=== PATIENT | male | born 1940 | race Caucasian/White ===

== ENCOUNTER 2018-04-19 05:51 | Inpatient (IN) | payer OTHER ==
[2018-04-13 11:39] LABS: Urine Appearance CLEAR; Urine Bilirubin NEGATIVE (NEG); Urine Blood NEGATIVE (NEG); Urine Color YELLOW; Urine Glucose NEGATIVE (NEG); Urine Protein NEGATIVE (NEG); Urine Urobilinogen 0.2 mg/dL (0.2-1.0); Urine pH 5.5 (5.0-7.0)
[2018-04-13 11:43] LABS: Urine Microscopic Reflex NO UMIC
[2018-04-13 11:54] LABS: Albumin 3.9 g/dL (3.4-5.0); Bilirubin Total 0.6 mg/dL (0.2-1.0); Protein, Total 7.8 g/dL (6.4-8.2)
[2018-04-13 13:02] LABS: Absolute Monocytes 0.6 K/uL (0.1-1.3); Absolute Neutrophil 6.4 K/uL (1.8-8.0); Basophils % 0.6 % (0-1.3); Eosinophils % 2.5 % (0-4.4); Hematocrit 43.1 % (39.6-49.0); Lymphocytes % 12.2 % (15.3-44.8); MPV 8.9 fL (7.6-11.3); Monocytes % 7.1 % (3.3-12.3); RBC Red Blood Cell Count 4.89 M/uL (4.33-5.43)
--- OUTSIDE RECORDS SUMMARY | 2018-04-19 06:03 | XMS REPORT ---
:1940 Author Organization [facility] Address [address] [place] [address] Dr. Mares [address] [place] [id number] Care Team Providers Name Role Phone Unavailable Unavailable Unavailable Problems This patient has no known problems. Allergies, Adverse Reactions, Alerts This patient has no known allergies or adverse reactions. Medications This patient has no known medications.
--- OUTSIDE RECORDS SUMMARY | 2018-04-19 06:03 | XMS REPORT ---
:1940 Author Organization [employer] Care Team Providers Name Role Phone Michael Carrillo Provider Role Unavailable Allergies, Adverse Reactions, Alerts Substance Reaction Event Type N.K.D.A. Info Not Available Non Drug Allergy Problems Problem Type Condition Code Onset Dates Condition Status Assessment Primary osteoarthritis of left knee M17.12 Active Assessment Pain, joint, knee, right M25.561 Active Assessment Primary osteoarthritis of right M17.11 Active knee Problem Primary osteoarthritis of knees, M17.0 Active bilateral Problem Pain in joint of left knee M25.562 Active Problem Primary osteoarthritis of right M17.11 Active knee Assessment Pain in joint of left knee M25.562 Active Problem Pain, joint, knee, right M25.561 Active Problem Primary osteoarthritis of left knee M17.12 Active Medications Medication Code Code Instructions Start End Status Dosage System Date Date Gabapentin ND 31225491321 300 MG Orally Active 1 capsule Once a day Oxybutynin [facility] 95499213174 5 MG Orally Active 1 tablet Chloride Twice a day Warfarin Sodium [facility] 70247146487 7.5 MG Orally Active 1 tablet Once a day Potassium ND 51957619337 Oral Active 1 tab Enalapril ND 38314471337 10 MG Orally Active 1 tablet Maleate Once a day Simvastatin ND 48301865096 40 MG Orally Active 1 tablet in Once a day the evening Doxazosin ND 69440384660 1 MG Orally Active 1 tablet Mesylate Once a day Furosemide ND 90436545969 Oral Active 1 tab Digoxin [facility] 54542853636 0.25 MG/ML Active as directed Injection Results No Known Results Summary Purpose eClinicalWorks Submission
[2018-04-19] MEDS ORDERED: Ringers Lactate 1,000 ML IV ONE ×2 (06:27→12:12)
[2018-04-19] MEDS ORDERED: CEFAZOLIN 1GM (PREMIX IV) 1 GM/50 ML BAG ONE (06:28)
[2018-04-19] MEDS ORDERED: LIDOCAINE 1% MPF 5 ML VIAL ONE (06:28)
[2018-04-19] MEDS ORDERED: TRANEXAMIC ACID 1,000 MG in NA CHLORIDE 0.9% 50 ML IV SCH (08:00)
[2018-04-19] MEDS ORDERED: MIDAZOLAM HCL 2 MG/2 ML INJ ONE ×2 (08:10→08:44)
[2018-04-19] MEDS ORDERED: FENTANYL CITR 250 MCG/5 ML ONE (08:11)
[2018-04-19] MEDS ORDERED: NA CHLORIDE 0.9% 250 ML ONE (08:12)
[2018-04-19] MEDS ORDERED: BUPIVACA 0.25%/EPI 0.0005% MDV 50 ML VIAL ONE (08:12)
[2018-04-19] MEDS ORDERED: ROPLVACAINE HCL 20 ML ONE ×2 (08:17→08:35)
[2018-04-19] MEDS ORDERED: GLYCOPYRROLATE 0.2 MG/ML SYR ONE (08:44)
[2018-04-19] MEDS ORDERED: ROCURONIUM 50 MG/5 ML VIAL IV ONE (08:44)
[2018-04-19] MEDS ORDERED: PROPOFOL 200 MG/20 ML VIAL IV ONE (09:09)
[2018-04-19] MEDS ORDERED: LIDOCAINE 2% MPF 5 ML VIAL ONE (09:09)
[2018-04-19] MEDS ORDERED: EPHEDRINE SULF 50 MG/ML VIAL ONE (09:10)
[2018-04-19] MEDS ORDERED: NEOSTIGMINE 1 MG/ML -10 ML VIAL ONE (10:51)
[2018-04-19] MEDS ORDERED: FENTANYL CITR 100 MCG/2 ML ONE (12:37)
[2018-04-19] MEDS ORDERED: DEXAMETHASONE 10 MG/ML VIAL ONE (12:38)
[2018-04-19] MEDS ORDERED: ONDANSETRON 4 MG/2 ML VIAL IV PRN (13:21)
[2018-04-19] MEDS ORDERED: MORPHINE 4 MG/ML SYR IV PRN (13:21)
[2018-04-19] MEDS: HYDROMORPHONE HCL 2 MG/ML inj ONE ×3 (14:04→14:30)
[2018-04-19 14:17] LABS: Hematocrit 37.8 % (39.6-49.0)
--- NOTE | 2018-04-19 14:40 | RAD REPORT ---
EXAM DESCRIPTION: RAD - Knee Left 2 View - 04/19/2018 2:20 pm CLINICAL HISTORY: Left total knee prosthesis placement COMPARISON: None. FINDINGS: Portable AP and cross-table lateral views were obtained. Left total knee prosthesis has be en placed. No suspicious bone or implant finding. Postsurgical changes are present as expected.
[2018-04-19] MEDS: CEFAZOLIN 1GM (PREMIX IV) 1 GM/50 ML BAG IV SCH (16:11)
[2018-04-19] MEDS: DIGOXIN 0.25 MG TABLET PO SCH (16:39)
[2018-04-19] MEDS: FUROSEMIDE 20 MG TABLET PO SCH (16:39)
[2018-04-19] MEDS: ENALAPRIL 10 MG TAB PO SCH (16:40)
[2018-04-19] MEDS ORDERED: CEFAZOLIN/NS 1gm 1 GM/50 ML BAG IVPB SCH (17:00)
--- NOTE | 2018-04-19 17:09 | EKG ---
Test Date: 2018-04-19 Test Time: 07:26:09 Clinical Research Associate: REINALDO MEASUREMENT RESULTS: Intervals: Rate: 84 [place]: QRSD: 106 QT: 378 QTc: 446 [place]: P: [place]: QRS: 54 T: 71 INTERPRETIVE STATEMENTS: Atrial fibrillation ST abnormality, possible digitalis effect Abnormal ECG No previous ECG available for comparison Electronically Signed On 04-19-18 17:06:57 [employer] SUPERVISOR by Rick Al
[2018-04-19] MEDS: HYDROCODONE/APAP 7.5/325 MG TAB PO PRN ×2 (17:51→21:38)
--- NOTE | 2018-04-19 17:58 | P.CNS ---
Date of Consult: 04/19/18 Reason for Consult: Medical management Requesting Physician: Michael Carrillo Primary Care Provider: Dr. Storey Chief Complaint: Left knee osteoarthritis, status post total knee History of Present Illness: This is a 78-year-old male with history of CHF, hypertension, atrial fibrillation on Coumadin, and history of mitral/tricuspid replacement admitted for left knee osteoarthritis now status post TKA, left lower extremity. I was consulted for medical management on this patient. At the time of my exam, patient was hemodynamically stable, alert oriented x3, satting 94-95% on 4 L via nasal cannula. He denied any other complaints, including chest pain, shortness of breath, headache, dizziness, vision changes, abdominal pain, complaints. He also reported well controlled pain at this time. No other concerns or complaints at this time Allergies No Known Allergies Allergy (Verified 04/13/18 10:06) Home medications list reviewed: Yes Home Medications: Digoxin [Lanoxin] 0.25 mg PO DAILY AFTER SUPPER 04/13/18 Doxazosin [Cardura] 2 mg PO BEDTIME 04/13/18 Enalapril [Vasotec] 10 mg PO DAILY AFTER SUPPER 04/13/18 Enoxaparin Sodium [Lovenox 60 MG INJ] 60 mg SQ DAILY 04/13/18 Furosemide [Lasix] 20 mg PO BID 04/13/18 Gabapentin 300 mg PO [id number] 04/13/18 Gabapentin 600 mg PO BEDTIME 04/13/18 Hydrocodone Bit/Acetaminophen [Hydrocodon-Acetaminophn 10-325] 1 each PO Q6HP PRN 04/13/18 Levothyroxine Sodium 137 mcg PO DAILY 04/13/18 Oxybutynin Chloride [Ditropan] 5 mg PO BID 04/13/18 Potassium Chloride [Klor-Con] 20 meq PO DAILY 04/13/18 Simvastatin 40 mg PO BEDTIME 04/13/18 Warfarin Sodium [Coumadin] 7.5 mg PO DAILY 5 PM 04/13/18 - Past Medical/Surgical History Diabetic: No -: CHF -: A-FIB -: HTN -: Hyperthyroidism -: lumbar surg. 2001 -: 2 artificial heart valves 2014 - Family History Mother Medical History: Stroke Notes: father prostate ca - Social History Alcohol use: Yes CD- Drugs: No Caffeine use: Yes Place of Residence: Home Review of Systems 10-point ROS is otherwise unremarkable Physical Examination Temp Pulse Resp BP Pulse Ox 97.5 F 104 H 18 135/84 94 04/19/18 16:00 04/19/18 16:40 04/19/18 16:00 04/19/18 16:40 04/19/18 16:00 General: Alert, In no apparent distress, Oriented x3 HEENT: Atraumatic, PERRLA, Mucous membr. moist/pink, EOMI, Sclerae nonicteric Neck: Supple, 2+ carotid pulse no bruit, No LAD, Without JVD or thyroid abnormality Respiratory: Clear to auscultation bilaterally, Normal air movement Cardiovascular: Regular rate/rhythm, Normal S1 S2 Gastrointestinal: Normal bowel sounds, No tenderness Musculoskeletal: Tenderness Integumentary: No rashes Neurological: Normal gait, Normal speech, Normal tone, Normal affect Lymphatics: No axilla or inguinal lymphadenopathy Laboratory Data (last 24 hrs) 04/19/18 13:59: Hgb 12.3 L, Hct 37.8 L 04/19/18 07:33: Potassium 4.0 - Problems (1) Hypertension Current Visit: Yes Status: Chronic Qualifiers: Hypertension type: essential hypertension Qualified Code(s): I10 - Essential (primary) hypertension (2) Congestive heart failure Current Visit: Yes Status: Acute Qualifiers: Heart failure type: unspecified Heart failure chronicity: acute on chronic Qualified Code(s): I50.9 - Heart failure, unspecified (3) Status post total left knee replacement Current Visit: Yes Status: Acute (4) H/O mitral valve replacement Current Visit: Yes Status: Chronic (5) H/O tricuspid valve replacement Current Visit: Yes Status: Chronic (6) Atrial fibrillation Current Visit: Yes Status: Chronic Qualifiers: Atrial fibrillation type: chronic Qualified Code(s): I48.2 - Chronic atrial fibrillation (7) Hypothyroid Current Visit: Yes Status: Acute Qualifiers: Hypothyroidism type: unspecified Qualified Code(s): E03.9 - Hypothyroidism , unspecified Conclusions/Impression: This is a 78-year-old male with: Atrial fibrillation (Acute) I48.91 Currently tachycardiac, and atrial fibrillation. Will resume home medications and monitor. Continue to hold anticoagulation. Restart 24 hr after surgery. Acute on chronic Congestive heart failure (Acute) I50.9 Continue home medications plus IV Lasix Oxygen per protocol. Continue to wean as tolerated H/O mitral valve replacement (Acute) Z95.2 H/O tricuspid valve replacement (Acute) Z95.2 Hypertension (Acute) I10 Blood pressure stable at this time Continue to monitor. Will continue home medications and make changes as knee Hypothyroid (Acute) E03.9 Stable. Continue home medications Status post total left knee replacement (Acute) Z96.652 Postop day 1. Continue clear liquid diet. Advance as per surgery/primary Physical therapy consulted Pain management DVT prophylaxis: Hold at this time. GI prophylaxis: None Diet: Clear liquid diet Time Spent Managing Pts care (In Minutes): 55
[2018-04-19] MEDS ORDERED: HOME MED 1 EA UNK (Gabapentin [Gabapentin] 600 MG) PO SCH (21:00)
[2018-04-19] MEDS: DOXAZOSIN 2 MG TAB PO SCH (21:06)
[2018-04-19] MEDS: OXYBUTYNIN CHLORIDE 5 MG TAB PO SCH (21:07)
[2018-04-19] MEDS: GABAPENTIN 300 MG CAP PO SCH (21:07)
[2018-04-20] MEDS: CEFAZOLIN 1GM (PREMIX IV) 1 GM/50 ML BAG IV SCH (00:06)
[2018-04-20] MEDS: TEMAZEPAM 15 MG CAP PO PRN ×2 (00:14→23:43)
[2018-04-20] MEDS ORDERED: NA CHLORIDE 0.9% 50 ML ONE (00:23)
[2018-04-20 06:08] LABS: Hematocrit 34.8 % (39.6-49.0)
[2018-04-20] MEDS: ENOXAPARIN 30 MG/0.3 ML SQ SCH ×3 (06:11→23:43)
[2018-04-20] MEDS: LEVOTHYROXINE SOD 0.025 MG TAB PO SCH (06:12)
[2018-04-20] MEDS: LEVOTHYROXINE SOD 0.112 MG TAB PO SCH (06:12)
[2018-04-20] MEDS: GABAPENTIN 300 MG CAP PO SCH ×2 (06:12→21:28)
[2018-04-20] MEDS: HYDROCODONE/APAP 7.5/325 MG TAB PO PRN ×4 (08:19→21:27)
[2018-04-20] MEDS ORDERED: HOME MED 1 EA UNK (Levothyroxine Sodium [Levothyroxine Sodium] 137 MCG) PO SCH (09:00)
[2018-04-20] MEDS: OXYBUTYNIN CHLORIDE 5 MG TAB PO SCH ×2 (10:07→21:28)
[2018-04-20] MEDS: FUROSEMIDE 20 MG TABLET PO SCH ×2 (10:07→16:59)
[2018-04-20] MEDS: POTASSIUM CL SA 10 MEQ TAB PO SCH (10:07)
--- NOTE | 2018-04-20 14:01 | P.PN ---
Date of Service: 04/20/18 (POD#1) S: 78 Y/O MALE FATIGUED BY AM THERAPY IS GENERALLY PLEASED WITH HIS TKA LLE ON HIS 1ST POST OP DAY. O: VSS, HGB WAS 14 PRE-OP, POST-OP WAS 12.3 AND WAS 11.4 THIS AM. DRAIN PRODUCING MINIMAL OUTPUT WAS PULLED AT 24 HRS WITH 4X4s AND STEPHY WRAP APPLIED. PAIN CHART READS 6,2,2,10,7,& 9/10. APPRECIATE DR. RABAGO'S MEDICAL EVAL TO MANAGEHTN,CHFA-FIB,HYPOTHYROIDISM, AND HX OF MITRAL AND TRICUSPID VALVE REPLACEMENT. GLUCOSE WAS 209 THIS AM, URINE GLUCOSE NEGATIVE. BANDAGE IS CLEAN DRY AND INTACT. PATIENT WENT 75' WITH PT. THERAPY NEEDS MORE SESSIONS TO ATTAIN BED MOBILITY, GAIT AND TRANSFER TO BE SAFE TO MANAGE 150'. OOB TO CHAIR AND STANDING NEED TO BE INDEPENDENT. A: PATIENT MAKING PROGRESS IN 1ST POST-OP DAY IN LINE WITH AGE AND MEDICAL CONDITION. P: CONTINUE MOBILIZATION EFFORT, AND ADMIT PATIENT TO CONTINUE JOINT CAMP BID SESSIONS TOLERATED.
[2018-04-20] MEDS: DIGOXIN 0.25 MG TABLET PO SCH (16:59)
[2018-04-20] MEDS: WARFARIN SODIUM 7.5 MG TAB PO SCH (18:49)
[2018-04-20] MEDS: ENALAPRIL 10 MG TAB PO SCH (18:51)
--- NOTE | 2018-04-20 19:05 | P.PN ---
Subjective Date of Service: 04/20/18 Primary Care Provider: Dr. Storey Chief Complaint: Left knee osteoarthritis, status post total knee Subjective: Improving Patient seen and examined at bedside. No family at bedside. Chart reviewed and case discussed with nursing staff. Review of Systems 10-point ROS is otherwise unremarkable Physical Examination - Vital Signs Temperature: 99 F Blood Pressure: 142/68 Pulse: 98 Respirations: 18 Pulse Ox (%): 94 - Physical Exam General: Alert, In no apparent distress, Oriented x3 HEENT: Atraumatic, PERRLA, EOMI Neck: Supple, JVD not distended Respiratory: Clear to auscultation bilaterally, Normal air movement Cardiovascular: Regular rate/rhythm, Normal S1 S2 Gastrointestinal: Normal bowel sounds, No tenderness Musculoskeletal: No tenderness Integumentary: No rashes Neurological: Normal speech, Normal tone, Normal affect Lymphatics: No axilla or inguinal lymphadenopathy - Studies Laboratory Data (last 24 hrs) 04/20/18 05:39: Hgb 11.4 L, Hct 34.8 L Assessment And Plan - Current Problems (Diagnosis) (1) Hypertension Current Visit: Yes Status: Chronic Qualifiers: Hypertension type: essential hypertension Qualified Code(s): I10 - Essential (primary) hypertension (2) Congestive heart failure Current Visit: Yes Status: Acute Qualifiers: Heart failure type: unspecified Heart failure chronicity: acute on chronic Qualified Code(s): I50.9 - Heart failure, unspecified (3) Status post total left knee replacement Current Visit: Yes Status: Acute (4) H/O mitral valve replacement Current Visit: Yes Status: Chronic (5) H/O tricuspid valve replacement Current Visit: Yes Status: Chronic (6) Atrial fibrillation Current Visit: Yes Status: Chronic Qualifiers: Atrial fibrillation type: chronic Qualified Code(s): I48.2 - Chronic atrial fibrillation (7) Hypothyroid Current Visit: Yes Status: Acute Qualifiers: Hypothyroidism type: unspecified Qualified Code(s): E03.9 - Hypothyroidism , unspecified - Plan This is a 78-year-old male with: Atrial fibrillation (Acute) I48.91 Rate controlled Will resume home medications and monitor. Restart Coumadin, patient is Lovenox. Check INR Acute on chronic Congestive heart failure (Acute) I50.9 Continue home medications plus IV Lasix Oxygen per protocol. Continue to wean as tolerated H/O mitral valve replacement (Acute) Z95.2 H/O tricuspid valve replacement (Acute) Z95.2 INR goal of 2.5-3.5 as patient is a high risk blood clotting Hypertension (Acute) I10 Blood pressure stable at this time Continue to monitor. Will continue home medications and make changes as knee Hypothyroid (Acute) E03.9 Stable. Continue home medications Status post total left knee replacement (Acute) Z96.652 Postop day 2. Continue soft diet. Advance as per surgery/primary Physical therapy consulted Pain management DVT prophylaxis: See above. GI prophylaxis: None Diet: Soft diet
[2018-04-20] MEDS: DOXAZOSIN 2 MG TAB PO SCH (21:26)
[2018-04-20] MEDS: ATORVASTATIN 20 MG TAB PO SCH (21:27)
[2018-04-20 22:07] LABS: Hematocrit 32.9 % (39.6-49.0)
[2018-04-20 22:19] LABS: Protime INR 1.08
[2018-04-21] MEDS: GABAPENTIN 300 MG CAP PO SCH ×2 (05:20→21:15)
[2018-04-21] MEDS: LEVOTHYROXINE SOD 0.112 MG TAB PO SCH (05:20)
[2018-04-21] MEDS: LEVOTHYROXINE SOD 0.025 MG TAB PO SCH (05:20)
[2018-04-21] MEDS: DOCUSATE NA 100 MG CAP PO PRN ×2 (05:23→09:08)
[2018-04-21] MEDS: HYDROCODONE/APAP 7.5/325 MG TAB PO PRN ×3 (05:37→14:26)
[2018-04-21] MEDS: ENOXAPARIN 30 MG/0.3 ML SQ SCH ×2 (09:00→21:14)
[2018-04-21] MEDS: OXYBUTYNIN CHLORIDE 5 MG TAB PO SCH ×2 (09:07→21:15)
[2018-04-21] MEDS: POTASSIUM CL SA 10 MEQ TAB PO SCH (09:07)
[2018-04-21] MEDS: FUROSEMIDE 20 MG TABLET PO SCH ×2 (09:07→17:04)
--- NOTE | 2018-04-21 13:59 | P.PN ---
Date of Service: 04/21/18 (POD#2) S: 78 Y/O MALE FATIGUED BY AM THERAPY IS ASLEEP AT 1 PM ON HIS 2ST POST OP DAY. PATIENT DID NOT AWAKEN WHILE i UNWRAPPED STEPHY BANDAGE COVERING HIS AQUACEL AND COMPRESSION BANDAGE OVER HIS DRAIN SITE. O: VSS, HGB IS 10.7 THIS MORNING DOWN FROM 11.4 YESTERDAY AM. DRAIN SITE AFTER WITHDRAWAL PRODUCED ENOUGH OUTPUT TO SOAK THROUGH A BOX OF 4X4s AND STEPHY WRAP THAT WAS APPLIED FOR COMPRESSION. PAIN CHART READS 0,10,0,0,9, & 0/10. . BANDAGE IS CLEAN DRY AND INTACT OVER INCISION. THE DRAIN SITE DOES NOT APPEAR TO BE CREATING ANY ADDITIONAL LEAKAGE. PATIENT WENT 75' WITH PTTHIS MORNING AND WHILE STILL MAKING ROUNDS I MET THE PATIENT COMING WITH pt AROUND THE CORNER OF THE HALLWAY AND FOUND HIS AFTERNOON SESSION PRODUCED 100 FEET 1, 15 FEET 1 AND THERE WAS NO PROBLEM WITH TACHYCARDIA DURING THE GAIT WHICH WAS A PROBLEM NOTED YESTERDAY AFTERNOON. THE PATIENT HAS BEEN STARTED ON LOVENOX 30mg sq q 12 HRS & WARFARIN 7.5mg P.O. DAILY PM. YESTERDAYS PROTIME WAS 12.8 & INR WAS 1.08. A: PATIENT MAKING REASONABLE PROGRESS IN 2ND POST-OP DAY. P: CONTINUE MOBILIZATION EFFORT IN JOINT CAMP BID SESSIONS TOLERATED.
--- NOTE | 2018-04-21 15:58 | P.PN ---
Subjective Date of Service: 04/21/18 Primary Care Provider: Dr. Storey Chief Complaint: Left knee osteoarthritis, status post total knee Subjective: Improving Patient seen and examined at bedside. No family at bedside. Chart reviewed and case discussed with nursing staff. No complaints today Review of Systems 10-point ROS is otherwise unremarkable Physical Examination - Vital Signs Temperature: 99 F Blood Pressure: 142/68 Pulse: 98 Respirations: 18 Pulse Ox (%): 94 - Physical Exam General: Alert, In no apparent distress HEENT: Atraumatic, PERRLA, EOMI Neck: Supple, JVD not distended Respiratory: Clear to auscultation bilaterally, Normal air movement Cardiovascular: Regular rate/rhythm, Normal S1 S2 Gastrointestinal: Normal bowel sounds, No tenderness Musculoskeletal: No tenderness Integumentary: No rashes Neurological: Normal speech, Normal tone, Normal affect Lymphatics: No axilla or inguinal lymphadenopathy - Studies Laboratory Data (last 24 hrs) 04/20/18 21:48: PT 12.8 H, INR 1.08 04/20/18 21:48: Hgb 10.7 L, Hct 32.9 L Assessment And Plan - Current Problems (Diagnosis) (1) Hypertension Current Visit: Yes Status: Chronic Qualifiers: Hypertension type: essential hypertension Qualified Code(s): I10 - Essential (primary) hypertension (2) Congestive heart failure Current Visit: Yes Status: Acute Qualifiers: Heart failure type: unspecified Heart failure chronicity: acute on chronic Qualified Code(s): I50.9 - Heart failure, unspecified (3) Status post total left knee replacement Current Visit: Yes Status: Acute (4) H/O mitral valve replacement Current Visit: Yes Status: Chronic (5) H/O tricuspid valve replacement Current Visit: Yes Status: Chronic (6) Atrial fibrillation Current Visit: Yes Status: Chronic Qualifiers: Atrial fibrillation type: chronic Qualified Code(s): I48.2 - Chronic atrial fibrillation (7) Hypothyroid Current Visit: Yes Status: Acute Qualifiers: Hypothyroidism type: unspecified Qualified Code(s): E03.9 - Hypothyroidism , unspecified - Plan This is a 78-year-old male with: Atrial fibrillation (Acute) I48.91 Rate controlled Will resume home medications and monitor. Continue Coumadin and bridging from Lovenox. Check INR Acute on chronic Congestive heart failure (Acute) I50.9 Continue home medications plus IV Lasix Oxygen per protocol. Continue to wean as tolerated H/O mitral valve replacement (Acute) Z95.2 H/O tricuspid valve replacement (Acute) Z95.2 INR goal of 2.5-3.5 as patient is a high risk blood clotting Hypertension (Acute) I10 Blood pressure stable at this time Continue to monitor. Will continue home medications and make changes as knee Hypothyroid (Acute) E03.9 Stable. Continue home medications Status post total left knee replacement (Acute) Z96.652 Postop day 2. Continue soft diet. Advance as per surgery/primary Physical therapy consulted Pain management DVT prophylaxis: See above. GI prophylaxis: None Diet: Soft diet
[2018-04-21 16:50] LABS: Protime INR 1.13
[2018-04-21] MEDS ORDERED: WARFARIN SODIUM 7.5 MG TAB PO SCH (17:00)
[2018-04-21] MEDS: DIGOXIN 0.25 MG TABLET PO SCH (17:04)
[2018-04-21] MEDS: ENALAPRIL 10 MG TAB PO SCH (17:04)
[2018-04-21] MEDS: WARFARIN SODIUM 7.5 MG TAB PO SCH (17:04)
[2018-04-21] MEDS: DOXAZOSIN 2 MG TAB PO SCH (21:14)
[2018-04-21] MEDS: ATORVASTATIN 20 MG TAB PO SCH (21:14)
[2018-04-22] MEDS: LEVOTHYROXINE SOD 0.025 MG TAB PO SCH (05:11)
[2018-04-22] MEDS: GABAPENTIN 300 MG CAP PO SCH ×2 (05:11→20:39)
[2018-04-22] MEDS: LEVOTHYROXINE SOD 0.112 MG TAB PO SCH (05:12)
[2018-04-22 05:33] LABS: Hematocrit 28.7 % (39.6-49.0)
[2018-04-22 06:12] LABS: Protime INR 1.12
[2018-04-22] MEDS: ENOXAPARIN 30 MG/0.3 ML SQ SCH ×2 (08:54→20:40)
[2018-04-22] MEDS: FUROSEMIDE 20 MG TABLET PO SCH ×2 (08:55→17:08)
[2018-04-22] MEDS: POTASSIUM CL SA 10 MEQ TAB PO SCH (08:55)
[2018-04-22] MEDS: OXYBUTYNIN CHLORIDE 5 MG TAB PO SCH ×2 (08:55→20:40)
[2018-04-22] MEDS: DOCUSATE NA 100 MG CAP PO PRN (09:06)
[2018-04-22] MEDS: HYDROCODONE/APAP 7.5/325 MG TAB PO PRN ×2 (09:07→15:20)
[2018-04-22] MEDS: WARFARIN SODIUM 7.5 MG TAB PO SCH (17:08)
[2018-04-22] MEDS: ENALAPRIL 10 MG TAB PO SCH (17:08)
[2018-04-22] MEDS: DIGOXIN 0.25 MG TABLET PO SCH (17:09)
--- NOTE | 2018-04-22 18:11 | P.PN ---
Subjective Date of Service: 04/22/18 Primary Care Provider: Dr. Storey Chief Complaint: Left knee osteoarthritis, status post total knee Subjective: No C/O voiced, Improving, Working w/ PT Patient seen and examined at bedside. No family at bedside. Chart reviewed and case discussed with nursing staff. No complaints today. No acute events overnight. Low-grade temperature noted. No evidence of bleeding. Denies any chest pain, shortness of breath, cough, fever/chills, dizziness or headache Review of Systems 10-point ROS is otherwise unremarkable Physical Examination - Vital Signs Temperature: 100.4 F Blood Pressure: 113/59 Pulse: 83 Respirations: 17 Pulse Ox (%): 91 - Physical Exam General: Alert, In no apparent distress HEENT: Atraumatic, PERRLA, EOMI Neck: Supple, JVD not distended Respiratory: Clear to auscultation bilaterally, Normal air movement Cardiovascular: Regular rate/rhythm, Normal S1 S2 Gastrointestinal: Normal bowel sounds, No tenderness Musculoskeletal: No tenderness Integumentary: No rashes Neurological: Normal speech, Normal tone, Normal affect Lymphatics: No axilla or inguinal lymphadenopathy - Studies Laboratory Data (last 24 hrs) 04/22/18 05:51: PT 13.2 H, INR 1.12 04/22/18 04:17: Hgb 9.8 L, Hct 28.7 L Assessment And Plan - Current Problems (Diagnosis) (1) Hypertension Current Visit: Yes Status: Chronic Qualifiers: Hypertension type: essential hypertension Qualified Code(s): I10 - Essential (primary) hypertension (2) Congestive heart failure Current Visit: Yes Status: Acute Qualifiers: Heart failure type: unspecified Heart failure chronicity: acute on chronic Qualified Code(s): I50.9 - Heart failure, unspecified (3) Status post total left knee replacement Current Visit: Yes Status: Acute (4) H/O mitral valve replacement Current Visit: Yes Status: Chronic (5) H/O tricuspid valve replacement Current Visit: Yes Status: Chronic (6) Atrial fibrillation Current Visit: Yes Status: Chronic Qualifiers: Atrial fibrillation type: chronic Qualified Code(s): I48.2 - Chronic atrial fibrillation (7) Hypothyroid Current Visit: Yes Status: Acute Qualifiers: Hypothyroidism type: unspecified Qualified Code(s): E03.9 - Hypothyroidism , unspecified - Plan This is a 78-year-old male with: Atrial fibrillation (Acute) I48.91 Rate controlled Will resume home medications and monitor. Continue Coumadin and bridging from Lovenox. Check INR , goal 2.5-3.5 Acute on chronic Congestive heart failure (Acute) I50.9 Continue home medications plus IV Lasix Oxygen per protocol. Continue to wean as tolerated H/O mitral valve replacement (Acute) Z95.2 H/O tricuspid valve replacement (Acute) Z95.2 INR goal of 2.5-3.5 as patient is a high risk blood clotting Hypertension (Acute) I10 Blood pressure stable at this time Continue to monitor. Will continue home medications and make changes as knee Hypothyroid (Acute) E03.9 Stable. Continue home medications Status post total left knee replacement (Acute) Z96.652 Postop day 3. Continue soft diet. Advance as per surgery/primary Physical therapy consulted Pain management Encourage incentive spirometer use Check chest x-ray, urine, CBC as patient with low-grade temperature. DVT prophylaxis: See above. GI prophylaxis: None Diet: Soft diet
[2018-04-22] MEDS: DOXAZOSIN 2 MG TAB PO SCH (20:39)
[2018-04-22] MEDS: ATORVASTATIN 20 MG TAB PO SCH (20:39)
[2018-04-23 05:00] LABS: Absolute Lymphocytes (CBC) 0.8 K/uL (0.7-4.9); Absolute Monocytes 0.9 K/uL (0.1-1.3); Absolute Neutrophil 6.1 K/uL (1.8-8.0); Basophils % 0.4 % (0-1.3); Eosinophils % 1.9 % (0-4.4); Hematocrit 27.6 % (39.6-49.0); Lymphocytes % 9.5 % (15.3-44.8); MPV 9.1 fL (7.6-11.3); Monocytes % 10.9 % (3.3-12.3); RBC Red Blood Cell Count 3.15 M/uL (4.33-5.43)
[2018-04-23] MEDS: HYDROCODONE/APAP 7.5/325 MG TAB PO PRN ×2 (05:09→15:27)
[2018-04-23] MEDS: LEVOTHYROXINE SOD 0.112 MG TAB PO SCH (05:10)
[2018-04-23] MEDS: LEVOTHYROXINE SOD 0.025 MG TAB PO SCH (05:10)
[2018-04-23] MEDS: GABAPENTIN 300 MG CAP PO SCH ×2 (05:10→20:29)
[2018-04-23 05:22] LABS: ALT/SGPT 27 U/L (12-78); AST/SGOT 25 U/L (15-37); Albumin 2.8 g/dL (3.4-5.0); Alkaline Phosphatase 83 U/L (45-117); BUN Blood Urea Nitrogen 14 mg/dL (7-18); Bicarbonate 31 mmol/L (21-32); Bilirubin Total 0.9 mg/dL (0.2-1.0); Glucose Level 117 mg/dL (74-106); Potassium 3.7 mmol/L (3.5-5.1); Protein, Total 6.3 g/dL (6.4-8.2); Sodium Level 137 mmol/L (136-145)
[2018-04-23 05:53] LABS: Urine Appearance CLEAR; Urine Bilirubin NEGATIVE (NEG); Urine Blood NEGATIVE (NEG); Urine Color YELLOW; Urine Glucose NEGATIVE (NEG); Urine Protein NEGATIVE (NEG); Urine Specific Gravity 1.015 (1.005-1.030)
[2018-04-23 06:01] LABS: Urine Bacteria <20 /HPF (NONE SEEN); Urine Culture Reflex Order NOT NEEDED; Urine RBC NONE SEEN /HPF (NONE SEEN)
[2018-04-23 06:01] LABS: Protime INR 1.13
--- NOTE | 2018-04-23 07:54 | RAD REPORT ---
EXAM DESCRIPTION: RAD - Chest Single View - 04/23/2018 6:42 am CLINICAL HISTORY: Shortness of breath COMPARISON: None. TECHNIQUE: AP portable chest image was obtained 0637 hours . FINDINGS: Lung volumes are normal. No peripheral mass or consolidation. Mild prominence of lung trung ings present with baseline for the patient unknown. Sternotomy wires are in place. Heart size is uppe r normal. Vasculature within normal limits of portable imaging. No measurable pleural effusion and no pneumothorax. No acute bone process seen. Degenerative change present at each AC joint and there is old fracture remodeling at the midshaft left clavicle. No acute aortic findings suspected. IMPRESSION: Baseline study showing mild prominence of the interstitial markings most likely baseline . No focal infiltrates seen and no significant failure or volume overload. Heart size is upper normal.
[2018-04-23] MEDS: ENOXAPARIN 30 MG/0.3 ML SQ SCH ×2 (09:18→20:28)
[2018-04-23] MEDS: POTASSIUM CL SA 10 MEQ TAB PO SCH (09:18)
[2018-04-23] MEDS: FUROSEMIDE 20 MG TABLET PO SCH ×2 (09:19→17:05)
[2018-04-23] MEDS: OXYBUTYNIN CHLORIDE 5 MG TAB PO SCH ×2 (09:19→20:29)
[2018-04-23] MEDS: ENALAPRIL 10 MG TAB PO SCH (17:04)
[2018-04-23] MEDS: DOCUSATE NA 100 MG CAP PO PRN (17:05)
[2018-04-23] MEDS: WARFARIN SODIUM 7.5 MG TAB PO SCH (17:05)
--- NOTE | 2018-04-23 17:40 | P.PN ---
Subjective Date of Service: 04/23/18 Primary Care Provider: Dr. Storey Chief Complaint: Left knee osteoarthritis, status post total knee Subjective: No C/O voiced, Improving, Working w/ PT Patient seen and examined at bedside. No family at bedside. Chart reviewed and case discussed with nursing staff. No complaints today. Seen walking with physical therapy No acute events overnight. Low-grade temperature noted. No evidence of bleeding. Denies any chest pain, shortness of breath, cough, fever/chills, dizziness or headache Review of Systems 10-point ROS is otherwise unremarkable Physical Examination - Vital Signs Temperature: 98.3 F Blood Pressure: 132/72 Pulse: 103 Respirations: 18 Pulse Ox (%): 94 - Physical Exam General: Alert, In no apparent distress, Oriented x3 HEENT: Atraumatic, PERRLA, EOMI Neck: Supple, JVD not distended Respiratory: Clear to auscultation bilaterally, Normal air movement Cardiovascular: Regular rate/rhythm, Normal S1 S2 Gastrointestinal: Normal bowel sounds, No tenderness Musculoskeletal: No tenderness Integumentary: No rashes Neurological: Normal speech, Normal tone, Normal affect Lymphatics: No axilla or inguinal lymphadenopathy - Studies Laboratory Data (last 24 hrs) 04/23/18 04:26: PT 13.4 H, INR 1.13 04/23/18 04:09: Sodium 137, Potassium 3.7, BUN 14, Creatinine 0.76, Glucose 117 H, Total Bilirubin 0.9, AST 25, ALT 27, Alkaline Phosphatase 83 04/23/18 04:09: WBC 7.9, Hgb 9.3 L, Hct 27.6 L, Plt Count 120 L D Assessment And Plan - Current Problems (Diagnosis) (1) Hypertension Current Visit: Yes Status: Chronic Qualifiers: Hypertension type: essential hypertension Qualified Code(s): I10 - Essential (primary) hypertension (2) Congestive heart failure Current Visit: Yes Status: Acute Qualifiers: Heart failure type: unspecified Heart failure chronicity: acute on chronic Qualified Code(s): I50.9 - Heart failure, unspecified (3) Status post total left knee replacement Current Visit: Yes Status: Acute (4) H/O mitral valve replacement Current Visit: Yes Status: Chronic (5) H/O tricuspid valve replacement Current Visit: Yes Status: Chronic (6) Atrial fibrillation Current Visit: Yes Status: Chronic Qualifiers: Atrial fibrillation type: chronic Qualified Code(s): I48.2 - Chronic atrial fibrillation (7) Hypothyroid Current Visit: Yes Status: Acute Qualifiers: Hypothyroidism type: unspecified Qualified Code(s): E03.9 - Hypothyroidism , unspecified - Plan This is a 78-year-old male with: Atrial fibrillation (Acute) I48.91 Rate controlled Will resume home medications and monitor. Continue Coumadin and bridging from Lovenox. Check INR , goal 2.5-3.5 Acute on chronic Congestive heart failure (Acute) I50.9 Continue home medications plus IV Lasix Oxygen per protocol. Continue to wean as tolerated H/O mitral valve replacement (Acute) Z95.2 H/O tricuspid valve replacement (Acute) Z95.2 INR goal of 2.5-3.5 as patient is a high risk blood clotting Hypertension (Acute) I10 Blood pressure stable at this time Continue to monitor. Will continue home medications and make changes as knee Hypothyroid (Acute) E03.9 Stable. Continue home medications Status post total left knee replacement (Acute) Z96.652 Postop day 3. Continue soft diet. Advance as per surgery/primary Physical therapy consulted Pain management Encourage incentive spirometer use No evidence of infection on chest x-ray or urine. DVT prophylaxis: See above. GI prophylaxis: None Diet: Soft diet
[2018-04-23] MEDS: DIGOXIN 0.25 MG TABLET PO SCH (17:56)
[2018-04-23] MEDS: DOXAZOSIN 2 MG TAB PO SCH (20:29)
[2018-04-23] MEDS: ATORVASTATIN 20 MG TAB PO SCH (20:29)
[2018-04-24] MEDS: HYDROCODONE/APAP 7.5/325 MG TAB PO PRN ×2 (03:19→12:58)
[2018-04-24 05:00] LABS: Protime INR 1.23
[2018-04-24] MEDS: LEVOTHYROXINE SOD 0.025 MG TAB PO SCH (06:26)
[2018-04-24] MEDS: GABAPENTIN 300 MG CAP PO SCH (06:26)
[2018-04-24] MEDS: LEVOTHYROXINE SOD 0.112 MG TAB PO SCH (06:26)
[2018-04-24] MEDS: POTASSIUM CL SA 10 MEQ TAB PO SCH (09:56)
[2018-04-24] MEDS: OXYBUTYNIN CHLORIDE 5 MG TAB PO SCH (09:56)
[2018-04-24] MEDS: ENOXAPARIN 30 MG/0.3 ML SQ SCH (09:57)
[2018-04-24] MEDS: FUROSEMIDE 20 MG TABLET PO SCH (09:57)
--- NOTE | 2018-04-24 11:50 | P.PN ---
Date of Service: 04/24/18 S: PATIENT SITTING ON EDGE OF BED ANXIOUS TO GO HOME TODAY. INDICATES SHE HAS HOME TEST KIT AND IS USED TO CHECKING INR Q WEDNESDAY. DR. HERNANDEZ PROVIDED 3 DOSES OF LOVENOX INJECTABLE FOR POST OP AND PATIENT CAN GET MORE IF NEEDED WHILE WARFARIN DOSE TAKES EFFECT. O: VSS, HGB IS 9.3 THIS MORNING. PAIN CHART READS 0,0,0,4,0, & 4/10. . BANDAGE IS CLEAN DRY AND INTACT, WILL BE CHANGED PRIOR TO DISCHARGE ON POD#5. PATIENT WENT 150', 250', AND 120' WITH PT YESTERDAY AND PT IS ON THE FLOOR FOR TODAY'S SESSION. TODAY'S PROTIME IS 14.6 & INR IS 1.23. A: PATIENT MAKING GOOD PROGRESS IN 5TH POST-OP DAY. DISCHARGE TO HOME IS APPROPRIATE. P: HOME HEALTH AND CPM ARRANGED FROM OFFICE CPM LLE 3 TO 4 HRS/D, 0 TO 80*, INCREASE 5*/D ADAM. TO MAX 120*X 3 WEEKS CHANGE AQUACEL BANDAGE TODAY WITH ALCOHOL SWABS PRIOR TO NEW AQUACEL BANDAGE HH PT CONTINUE MOBILIZATION WITH GAIT AND TRANSFERS WBAT LLE, AAROM AND PROM. PATIENT WILL CONTINUE LOVENOX SQ INJECTIONS PRESCRIBED BY DR. HERNANDEZ, AND CALL FOR REFILL NEEDED TO DR. HERNANDEZ'S OFFICE. PATIENT WILL CONTINUE USUAL DOSE OF DAILY WARFARIN UNLESS ADJUSTED BY DR. HERNANDEZ. F/U MY OFFICE IN 1 TO 2 WEEKS.
--- NOTE | 2018-04-24 12:43 | P.PN ---
Subjective Date of Service: 04/24/18 Primary Care Provider: Dr. Storey Chief Complaint: Left knee osteoarthritis, status post total knee Subjective: No C/O voiced, Ambulating, Improving Patient seen and examined at bedside. No family at bedside. Chart reviewed and case discussed with nursing staff. No complaints today. Patient eager to go home today. No acute events overnight. Low-grade temperature noted. No evidence of bleeding. Denies any chest pain, shortness of breath, cough, fever/chills, dizziness or headache Review of Systems 10-point ROS is otherwise unremarkable Physical Examination - Vital Signs Temperature: 99.4 F Blood Pressure: 131/60 Pulse: 89 Respirations: 18 Pulse Ox (%): 95 - Physical Exam General: Alert, In no apparent distress, Oriented x3 HEENT: Atraumatic, PERRLA, EOMI Neck: Supple, JVD not distended Respiratory: Clear to auscultation bilaterally, Normal air movement Cardiovascular: Regular rate/rhythm, Normal S1 S2 Gastrointestinal: Normal bowel sounds, No tenderness Musculoskeletal: No tenderness Integumentary: No rashes Neurological: Normal speech, Normal tone, Normal affect Lymphatics: No axilla or inguinal lymphadenopathy - Studies Laboratory Data (last 24 hrs) 04/24/18 04:45: PT 14.6 H, INR 1.23 Assessment And Plan - Current Problems (Diagnosis) (1) Hypertension Current Visit: Yes Status: Chronic Qualifiers: Hypertension type: essential hypertension Qualified Code(s): I10 - Essential (primary) hypertension (2) Congestive heart failure Current Visit: Yes Status: Acute Qualifiers: Heart failure type: unspecified Heart failure chronicity: acute on chronic Qualified Code(s): I50.9 - Heart failure, unspecified (3) Status post total left knee replacement Current Visit: Yes Status: Acute (4) H/O mitral valve replacement Current Visit: Yes Status: Chronic (5) H/O tricuspid valve replacement Current Visit: Yes Status: Chronic (6) Atrial fibrillation Current Visit: Yes Status: Chronic Qualifiers: Atrial fibrillation type: chronic Qualified Code(s): I48.2 - Chronic atrial fibrillation (7) Hypothyroid Current Visit: Yes Status: Acute Qualifiers: Hypothyroidism type: unspecified Qualified Code(s): E03.9 - Hypothyroidism , unspecified - Plan This is a 78-year-old male with: Atrial fibrillation (Acute) I48.91 Rate controlled Will resume home medications and monitor. Continue Coumadin and bridging from Lovenox. 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 Patient has all prescriptions for lovenox and coumading. Acute on chronic Congestive heart failure (Acute) I50.9 Continue home medications plus IV Lasix Oxygen per protocol. Continue to wean as tolerated H/O mitral valve replacement (Acute) Z95.2 H/O tricuspid valve replacement (Acute) Z95.2 INR goal of 2.5-3.5 as patient is a high risk blood clotting Hypertension (Acute) I10 Blood pressure stable at this time Continue to monitor. Will continue home medications and make changes as knee Hypothyroid (Acute) E03.9 Stable. Continue home medications Status post total left knee replacement (Acute) Z96.652 Postop day 4. Diet per primary, surgery. Physical therapy Pain management Encourage incentive spirometer use No evidence of infection on chest x-ray or urine. Cleared for discharge from medicine point of view.
--- NOTE | 2018-05-21 02:30 | OP ---
Surgeon: Michael Carrillo MD Junior Software Developer: Michael Carrillo M.D. Preoperative Diagnosis: Primary osteoarthritis, left knee, with severe varus deformity and bone-on-b one contact, medial compartment. Postoperative Diagnosis: Primary osteoarthritis, left knee, with edvw-bq-izko contact and grade 4 er osion, medial compartment, left knee. Procedure: Left total knee arthroplasty with computer navigation. Technique: The patient was taken to the operating room. He was given 1 g of Ancef IV preoperatively . The patient was placed on the operative table with a bolster placed under his left buttock and a r est on the operative table to support the foot at 90 degrees knee flexion. Time-out was called and a ll pertinent facts were discussed and it was elected to proceed with the planned operation. Prepping and draping was carried out with Betadine prep and scrub followed by DuraPrep of the foot, allowed i t to dry for 3 minutes. The drapes were placed as usual. The incision was drawn on the knee and Iob an sticky drape was then placed over the operative site. The incision was made from 4 cm above the s uperior pole of the patella across the patella and just medial to the tibial tubercle. This was kimbrough ied sharply through the skin and subcutaneous tissue with Bovie coagulation at each step. The dissec tion continued with a medial parapatellar incision in the capsule. The patella was everted and measu red. The appropriate size patellar component was selected as 38 mm in diameter. The appropriate set tings were made on the cutting jig. The cut was made and the PEG holes were drilled and the patellar prosthetic trial component placed in position, measured the same width as prior to cutting the artic ular surface away. A metal star was used instead of the patellar trial for continued protection of t he patella. The patella was everted and sharp debridement was carried out on the anterior knee along with subperiosteal dissection around the medial side of the knee to remove osteophytes from the tibi a and from the distal femur. ACL and PCL that could be reached were excised along with the anterior aspects of both menisci. Attention was then turned to the anterior distal femoral cortical area, whe re debridement was carried out, so a flat-footed array could be used there. The posterior portion of the suprapatellar pouch was excised along with periosteum to expose bone of the distal femoral jorge x. Additional osteophytes were removed from the lateral sides of the distal femur and proximal tibia . A 3 mm threaded pins were then placed, 2 in parallel fashion within the incision on the medial asp ect of the distal femoral cortex for anchoring the femoral array and the 2 threaded pins were also pl aced through puncture wounds on the medial side of the tibia at the juncture between the middle and p roximal thirds of the tibia. The pins distally were used to support the tibial array and once both r ays were stable and visualized on the machine, circumduction was carried out to calculate the center of rotation of the femoral head. The registration of the femur was carried out in sequence as indica radha by the computer program and then the tibial registration was also carried out. Both were verifie d with the pointer and the computer solved for a size 4 femoral component, size 5 tibial component. The parameters of the solution were appropriate and the procedure was continued with navigating the t ibial cutting jig into position making the tibial cuts and removing that portion of the tibial platea u. Flat-footed array verified that cut had been made accurately. Tensinometers were placed in posit ion and appropriate ligament adjustments were made with releasing the proximal medial collateral liga ment attachment and extending subperiosteal plane of releases around to include the posteromedial cor ner of the tibial plateau. The balance tibial plateau was recorded and then the distal femoral cutti ng jig was navigated into position and secured with pins. The anterior femoral cut was made. Then, the spacer blocks were placed in the extension position and found to be appropriate for the 10 mm spa cer block to be well aligned as well as snug with 1-2 mm play. The 4-in-1 cutting jig was navigated into position. The anterior cut was made and verified and then the posterior and chamfer cuts were m israel. The femoral component fit nicely on the distal end of the femur. The cutting block for the not ch was placed in position and secured and the notch cuts were made. Once the posterior cuts had been made, the spacer block was placed in position and it was found that both the extension and flexion b locks fit nicely and were accepted as appropriate. The tourniquet time for the case had reached 130 minutes and the tourniquet was deflated and left down for 16 minutes; during which time, additional p reparation for cementing was carried out with small caliber drill holes placed in cancellous surfaces for interdigitation of cement using pressurized technique. The cancellous surfaces were irrigated p rofusely with Simpulse lavage and then dried. The tourniquet was reinflated and left up for an addit ional 44 minutes during cementing and early closure. Once the tourniquet was up and surfaces were dr ied, the 2 batches of Simplex gentamicin cement by [employer] were placed in a cement gun and pressure t echniques were used to prepare first the tibial surface. The chosen implant was a tibial tray rotati ng platform revision MBT tray that was placed in position and tapped with a mallet to seat completely the tibial tray. Excess cement was curetted away. Attention was then turned to injecting cement in the distal femur. The Titus femoral component size 4 left posterior stabilized prosthesis was held in position with excess cement curetted away and then a trial insert 10 mm thickness was placed and the knee was extended while the cement was setting. The cement gun was then used to inject cement in to the cut cancellous surface of the patella and the 38 mm oval-dome patella prosthetic component was clamped into position and cement was allowed to set for 18 minutes. The portions of cement held out were quite hard and 18 minutes had passed, so the additional irrigation and trial spacer efforts wer e made. The 10 mm thickness was accepted and the RP insert 4 x 10 mm was slipped into position. The end result was quite stable. The knee was extended to 0 and flexed to 135 degrees. There was stabi lity for anterior drawer at 90 degrees, 45 degrees, and 0 degrees. The knee was irrigated again with Simpulse lavage and closure was effected using #1 Vicryl with interrupted sutures for closing the ca psule for later. A #1 Vicryl was used also for interrupted sutures for the deep subcutaneous layer. The superficial layer of subcutaneous tissue was closed with 2-0 Vicryl interrupted sutures and skin antonio were used for skin closure. Estimated blood loss was 200 mL. The Aquacel bandage was appli ed after the incision was injected with 30 mL of 0.25% Marcaine. Soft roll and an Mo bandage were u sed to cover the Aquacel bandage, which had been placed while the knee was flexed. The patient was t hen taken to the recovery room having tolerated this procedure well and placed in a CPM machine, rang ing from 0 degrees to 60 degrees. X-rays in recovery showed excellent position for prosthetic compon ents. DAVIN/VIRA Voice ID: [id number] Report ID: [id number]
--- NOTE | 2018-05-21 05:24 | DS ---
Date of Discharge: 04/25/2018 History Of Present Illness/hospital Course: Santhosh Knutson is a 78-year-old male who had the severe pr imary osteoarthritis of his left knee with genu varum deformity and cank-vd-xvdo contact. He has waldemar cted to proceed after all the risks and benefits were discussed and all questions answered. The zandra ent was taken to the operating room and the DePuy Bulloch total knee was inserted; included a Bulloch f emoral component, size 4, left, posterior stabilized; and a tibial tray RP Revision MBT size-5 was ce mented with Simplex gentamicin cement by [employer], 2 batches placed in a cement gun. Components also cemented were the Bulloch femoral component, left posterior stabilized, and oval dome patella 38 mm in diameter. The insert chosen was RP 4 x 10 mm. Postoperatively, the patient did quite well. Dr. Jose Montejo was consulted for medical management with problems identified as hypertension, congestive heart failure, status post total left knee placement, history of mitral valve replacement, history of tricuspid valve replacement, atrial fibrillation, and hypothyroidism. Home medications were resumed , and anticoagulation was scheduled to restart 24 hours after surgery. IV Lasix was added to home me dications for treatment of congestive heart failure. Oxygen was given per protocol. Hypertension wa s monitored, and home medications were continued for hypothyroidism. On the first postoperative day, the patient was pleased with his total knee arthroplasty even after morning therapy. Vital signs we re stable. Hemoglobin had dropped from 14.0 to 12.3 postoperatively, and on the first postoperative morning was 11.4. A drain that was placed at the end of surgery was pulled at 24 hours. Serum gluco se was 209. The bandage was clean, dry, and intact; and the patient had already gone 75 feet with Ph ysical Therapy. He was making excellent progress in his first postoperative day. The patient was st arted on Lovenox 30 mg subcutaneous q.12 hours for DVT prophylaxis and restarted on his warfarin 7.5 mg daily at 5 p.m. Morphine was available at 4 mg IV q.6 hours p.r.n. pain, as was hydrocodone 7.5 m g/APAP 325 mg 2 tablets p.o. q.4 hours p.r.n. pain. On the second postoperative day, 04/21/2018, the patient was somewhat groggy and sleepy. His hemoglobin had dropped to 10.7, down from 11.4 on the p rior morning. The drain site had produced enough to soak through the bandage, so the bandage was dimas nged over the incision and the drain site. The patient was able to make 100 feet with a rolling walk er in the afternoon without tachycardia during the effort. The patient's INR was very slow to gain m omentum during this hospitalization. On the fifth postoperative day, INR was up to 1.25 with pro-isaac e 14.6. The patient's indicated she had a home test kit and was used to check in his INR each T hursday and that Dr. Crum, dna analyst, had provided 3 doses of Lovenox injectable for postoperativ e use with ability to get more if needed while the warfarin dose continues to take effect. Hemoglobi n on 04/24/2018 was 9.3. The bandage was clean and dry. Pain chart was indicating minimal discomfor t. The patient was making great strides with Physical Therapy, going 150, 250, and 120 feet in 1 ses flaquito with Physical Therapy. On the fifth postoperative day, the patient was discharged to home. [facility] and CPM were arranged prior to the admission and were to take effect. The patient's CPM was to be used 3 to 4 hours per day, 0 to 80 degrees, increasing 5 degrees per day, to maximum of 120 de grees. The Aquacel bandage was changed prior to discharge with the new Aquacel bandage applied. [facility] was to continue mobilization with gait and transfers; weightbearing as tolerated, left lower extremity; and also work on active assist range of motion and passive range of motion. As mentioned above, the patient was to continue Lovenox subcutaneous injections as prescribed by Dr. Crum and do self-testing for INR. The usual dose of daily warfarin was to be continued unless adjusted through Dr. Crum in his office. Follow up in my office for removal of skin antonio recommended for 1 to 2 w eeks post discharge. DAVIN/VIRA Voice ID: [id number] Report ID: [id number]
== END 2018-04-24 14:30 | disposition home health service (06) | DRG 470 ==
LOC: OR 05:51 → 2ND 14:23 → OR 04-20 13:46 → 2ND 04-20 13:49
PROVIDERS: ADMIT Orthopaedic Surgery; ATTEND Orthopaedic Surgery
PROC: 0SRD0J9 Replacement of Left Knee Joint with Synthetic Substitute, Cemented, Open Approach (ICD-10-PCS; principal; 2018-04-19 08:00)
DX: M17.12 Unilateral primary osteoarthritis, left knee (principal); I48.2 Chronic atrial fibrillation; Z79.01 Long term (current) use of anticoagulants; Z95.2 Presence of prosthetic heart valve; E03.9 Hypothyroidism, unspecified; M54.32 Sciatica, left side; I11.0 Hypertensive heart disease with heart failure; I50.9 Heart failure, unspecified
CPT/HCPCS: 36415; 71045; 80053; 81001; 81003; 82962; 83036; 84132; 85014; 85018; 85025; 85610; 86850; 86900; 86901; 88304; 88305; 88311; 93005; 97110; 97116; 97139; 97163; 97530; J0690; J1100; J1170; J1650; J2250; J2405; J2704; J2710; J2795; J3010

== ENCOUNTER 2018-11-28 10:39 | Day surgery (SDC) | payer OTHER ==
--- OUTSIDE RECORDS SUMMARY | 2018-11-28 10:58 | XMS REPORT ---
:1940 Author Organization [employer] Care Team Providers Name Role Phone Michael Carrillo Provider Role Unavailable Allergies, Adverse Reactions, Alerts Substance Reaction Event Type N.K.D.A. Info Not Available Non Drug Allergy Problems Problem Type Condition Code Onset Dates Condition Status Problem Pain, joint, knee, right M25.561 Active Problem Primary osteoarthritis of left knee M17.12 Active Assessment Presence of left artificial knee Z96.652 Active joint Assessment Aftercare following joint Z47.1 Active replacement surgery Assessment Pain in joint of left knee M25.562 Active Problem Presence of left artificial Z96.612 Active shoulder joint Problem Presence of left artificial knee Z96.652 Active joint Problem Aftercare following joint Z47.1 Active replacement surgery Problem Primary osteoarthritis of knees, M17.0 Active bilateral Problem Pain in joint of left knee M25.562 Active Problem Sciatica, left side M54.32 Active Problem Primary osteoarthritis of right M17.11 Active knee Medications Medication Code Code Instructions Start End Status Dosage System Date Date Enalapril [facility] 72229641852 10 MG Orally Active 1 tablet Maleate Once a day Simvastatin [facility] 59930333655 40 MG Orally Active 1 tablet Once a day in the evening Furosemide [facility] 95243746499 Oral Active 1 tab Hydrocodone-Acet [facility] [address]-84 Active not aminophen defined Potassium [facility] 25231738214 Oral Active 1 tab Oxybutynin [facility] 61431247127 5 MG Orally Active 1 tablet Chloride Twice a day Digoxin [facility] 84460013900 0.25 MG/ML Active as Injection directed Warfarin Sodium [facility] 28805407067 7.5 MG Orally Active 1 tablet Once a day Levothyroxine [facility] [address]-74 Active not Sodium defined Enoxaparin [facility] [address]-51 Active not Sodium defined Gabapentin [facility] 31770742431 300 MG Orally Active 1 capsule Once a day Doxazosin [facility] 49728285036 1 MG Orally Active 1 tablet Mesylate Once a day Results No Known Results Summary Purpose [employer] Submission
--- OUTSIDE RECORDS SUMMARY | 2018-11-28 10:58 | XMS REPORT ---
[...] Start End Status Dosage System Date Date Oxybutynin [facility] 00545069993 5 MG Orally Active 1 tablet Chloride Twice a day Enoxaparin [facility] [address]-63 Active not Sodium defined Gabapentin [facility] 44893463441 300 MG Orally Active 1 capsule Once a day Digoxin [facility] 65783539082 0.25 MG/ML Active as Injection directed Simvastatin [facility] 88213909070 40 MG Orally Active 1 tablet Once a day in the evening Hydrocodone-Acet [facility] [address]-62 Active not aminophen defined Warfarin Sodium [facility] 65027616874 7.5 MG Orally Active 1 tablet Once a day Enalapril ND 26721612971 10 MG Orally Active 1 tablet Maleate Once a day Potassium ND 10395184733 Oral Active 1 tab Levothyroxine [facility] [address]-64 Active not Sodium defined Doxazosin [facility] 57714615996 1 MG Orally Active 1 tablet Mesylate Once a day Furosemide ND 67272329376 Oral Active 1 tab Results No Known Results Summary Purpose [employer] Submission
--- OUTSIDE RECORDS SUMMARY | 2018-11-28 10:58 | XMS REPORT ---
[...] Status Dosage System Date Date Gabapentin ND 47125227503 300 MG Orally Active 1 capsule Once a day Oxybutynin [facility] 90909761254 5 MG Orally Active 1 tablet Chloride Twice a day Warfarin Sodium [facility] 25805653745 7.5 MG Orally Active 1 tablet Once a day Potassium ND 65393879992 Oral Active 1 tab Enalapril ND 09233751595 10 MG Orally Active 1 tablet Maleate Once a day Simvastatin ND 65772222258 40 MG Orally Active 1 tablet in Once a day the evening Doxazosin ND 68358419188 1 MG Orally Active 1 tablet Mesylate Once a day Furosemide ND 30214192518 Oral Active 1 tab Digoxin [facility] 11679650255 0.25 MG/ML Active as directed Injection Results No Known Results Summary Purpose [employer] Submission
--- OUTSIDE RECORDS SUMMARY | 2018-11-28 10:58 | XMS REPORT ---
:1940 Author Organization [facility] Address [address] [place] [address] Dr. Mares [address] [place] [id number] Care Team Providers Name Role Phone Unavailable Unavailable Unavailable Problems This patient has no known problems. Allergies, Adverse Reactions, Alerts This patient has no known allergies or adverse reactions. Medications This patient has no known medications.
--- OUTSIDE RECORDS SUMMARY | 2018-11-28 10:58 | XMS REPORT ---
[...] End Status Dosage System Date Date Enalapril [facility] 63088307991 10 MG Orally Active 1 tablet Maleate Once a day Digoxin [facility] 68756755441 0.25 MG/ML Active as Injection directed Furosemide [facility] 07570901871 Oral Active 1 tab Enoxaparin [facility] [address]-22 Active not Sodium defined Potassium [facility] 16885598989 Oral Active 1 tab Doxazosin [facility] 99196268637 1 MG Orally Active 1 tablet Mesylate Once a day Simvastatin [facility] 28387931551 40 MG Orally Active 1 tablet Once a day in the evening Warfarin Sodium [facility] 08220873395 7.5 MG Orally Active 1 tablet Once a day Levothyroxine [facility] [address]-63 Active not Sodium defined Hydrocodone-Acet [facility] [address]-33 Active not aminophen defined Gabapentin [facility] 76402505959 300 MG Orally Active 1 capsule Once a day Oxybutynin [facility] 88526346211 5 MG Orally Active 1 tablet Chloride Twice a day Results No Known Results Summary Purpose [employer] Submission
--- OUTSIDE RECORDS SUMMARY | 2018-11-28 10:58 | XMS REPORT ---
:1940 Author Organization [employer] Care Team Providers Name Role Phone CarrilloMichael Provider Role Unavailable Allergies, Adverse Reactions, Alerts Substance Reaction Event Type N.K.D.A. Info Not Available Non Drug Allergy Problems Problem Type Condition Code Onset Dates Condition Status Assessment Primary osteoarthritis of right M17.11 Active knee Assessment Pain in joint of left knee M25.562 Active Assessment Pain, joint, knee, right M25.561 Active Assessment Sciatica, left side M54.32 Active Assessment Primary osteoarthritis of left knee M17.12 Active Problem Primary osteoarthritis of right M17.11 Active knee Problem Primary osteoarthritis of knees, M17.0 Active bilateral Problem Sciatica, left side M54.32 Active Problem Pain, joint, knee, right M25.561 Active Problem Pain in joint of left knee M25.562 Active Problem Primary osteoarthritis of left knee M17.12 Active Medications Medication Code Code Instructions Start End Status Dosage System Date Date Enalapril [facility] 84703630106 10 MG Orally Active 1 tablet Maleate Once a day Digoxin [facility] 64135490309 0.25 MG/ML Active as Injection directed Simvastatin ND 00460923976 40 MG Orally Active 1 tablet Once a day in the evening Furosemide ND 38713873661 Oral Active 1 tab Levothyroxine [facility] [address]-09 Active not Sodium defined Gabapentin [facility] 24366991636 300 MG Orally Active 1 capsule Once a day Potassium ND 87301467345 Oral Active 1 tab Oxybutynin ND 45938642757 5 MG Orally Active 1 tablet Chloride Twice a day Enoxaparin [facility] [address]-89 Active not Sodium defined Warfarin Sodium [facility] 84150291685 7.5 MG Orally Active 1 tablet Once a day Hydrocodone-Acet [facility] [address]-37 Active not aminophen defined Doxazosin [facility] 31815825298 1 MG Orally Active 1 tablet Mesylate Once a day Results No Known Results Summary Purpose [employer] Submission
[2018-11-28 11:26] LABS: Protime INR 1.46
[2018-11-28] MEDS ORDERED: PHENYLEPHRINE 10% OPTH 5ML ONE (11:26)
[2018-11-28] MEDS ORDERED: LIDOCAINE HCL/PF 3.5% OPTH GEL ONE (11:26)
[2018-11-28] MEDS ORDERED: CYCLOPENTOLATE 1% OPTH 2 ML ONE (11:27)
[2018-11-28] MEDS ORDERED: BUPIVACAINE 0.25% PF 10 ML VIAL ONE (11:27)
[2018-11-28] MEDS ORDERED: LIDOCAINE 2% MPF 5 ML VIAL ONE (11:27)
[2018-11-28] MEDS ORDERED: PHENYLEPHRINE 10% OPTH 5ML OPTH ONE ×2 (11:42→11:51)
[2018-11-28] MEDS ORDERED: CYCLOPENTOLATE 1% OPTH 2 ML OPTH ONE ×2 (11:42→11:51)
[2018-11-28] MEDS ORDERED: TETRACAINE HCL 0.5% 4ML OPTH ONE (12:01)
[2018-11-28] MEDS: NA CHLORIDE 0.9% 500 ML ONE (12:15)
[2018-11-28] MEDS ORDERED: EPINEPHRINE/PF 1 MG/ML AMP ONE (12:51)
[2018-11-28] MEDS ORDERED: NS 0.9% VIAL 10 ML ONE (12:51)
[2018-11-28] MEDS ORDERED: MIDAZOLAM HCL 2 MG/2 ML INJ ONE (12:54)
[2018-11-28] MEDS: LIDOCAINE 1% MPF 2 ML AMPULE ONE ×2 (12:57→13:22)
[2018-11-28] MEDS: BALANCED SALT IRRIG PLAIN 500 ML BTL IRR ONE ×2 (12:58→13:22)
[2018-11-28] MEDS: DUOVISC 1 KIT OPTH ONE ×2 (12:59→13:23)
[2018-11-28] MEDS: MOXIFLOXACIN HCL 10 DROPS/ML **OR USE OPTH ONE ×3 (12:59→13:40)
[2018-11-28] MEDS ORDERED: FENTANYL CITR 100 MCG/2 ML ONE (13:18)
[2018-11-28] MEDS ORDERED: PROPOFOL 200 MG/20 ML VIAL IV ONE (13:19)
--- NOTE | 2018-11-28 13:48 | P.BOP ---
Preoperative diagnosis: Nuclear sclerotic cataract OD Postoperative diagnosis: Same Primary procedure: Phacoemulsification with IOL OD Estimated blood loss: None Anesthesia: Local (Topical with anesthesia for cataract surgery) Complications: None Implants: ZCB00 +22.0 Transferred to: Other (Day surgery) Condition: Good
[2018-11-28 13:56] VITALS: BP 128/49; TEMP 97.1; O2SAT 97
--- NOTE | 2018-11-29 00:21 | OP ---
Surgeon: Catarina Acosta MD Anesthesiologist: Scar Spencer CRNA, and Sekou Dominguez MD. Preoperative Diagnosis: Nuclear sclerotic cataract, right eye. Operation Performed: Phacoemulsification with intraocular lens implant, right eye. Anesthesia: Per cataract surgery. Complications: None. Description Of Procedure: In the operating room the patient was prepped and draped in the usual sterile fashion for ophthalmic surgery. A lid speculum was placed in the right eye. Two paracentesis sites were made superiorly and inferiorly in the limbal cornea. Viscoat was placed in the anterior chamber and a crescent blade was used to make a corneal groove and tunnel, and a keratome was used to enter the anterior chamber. Provisc was placed in the anterior chamber and a 360 degree capsulotomy was performed with a cystitome. The lens was hydrodissected with BSS and rotated freely. The lens was removed with a stop and chop technique. 7.60 Phaco CDE was used to remove the lens. Residual cortex was removed with the irrigation and aspiration. Provisc was placed in the capsular bag. A ZCB00 +22.0 Lens was placed in the capsular bag without complications. Irrigation and aspiration was used to remove residual viscoelastic. The paracentesis sites were hydrated with BSS. The wound and paracentesis sites were inspected and found to be watertight. Vigamox 0.07 cc was placed intracamerally at the end of the procedure. The eye was irrigated with balanced salt solution. The eye was patched with a soft cotton patch and Miller metal shield. The patient was returned to day surgery in good condition. Comments: Malu was placed in the eye in day surgery and irrigated out of the eye with BSS in the OR. 1% preservative-free lidocaine was placed in the anterior chamber prior to Viscoat. Discharge Instructions: Mr. Knutson is discharged to home in good condition and is to follow up with Dr. Acosta in the morning. LENORE/VIRA Voice ID: [id number] Report ID: [id number] ROMULO
== END 2018-11-28 14:12 | disposition home or self-care (01) ==
LOC: OR 10:39
PROVIDERS: ATTEND Ophthalmology Retina Specialist
PROC: 08RJ3JZ Replacement of Right Lens with Synthetic Substitute, Percutaneous Approach (ICD-10-PCS; principal; 2018-11-28 12:15)
DX: H25.11 Age-related nuclear cataract, right eye (principal); I10 Essential (primary) hypertension; I48.91 Unspecified atrial fibrillation; E78.00 Pure hypercholesterolemia, unspecified; E07.9 Disorder of thyroid, unspecified; Z79.01 Long term (current) use of anticoagulants; Z95.2 Presence of prosthetic heart valve; Z87.891 Personal history of nicotine dependence
CPT/HCPCS: 36415 ×2; 84132; 85610; 66984; J0171; J2250; J3010; J2001; J2704